=== PATIENT | male | born 1950 | race American Indian/Alaskan Native ===

== ENCOUNTER 2016-06-07 09:32 | Emergency (ER) | payer MEDICAID ==
[2016-06-07 10:23] VITALS: BP 124/81
--- NOTE | 2016-06-07 11:13 | Emergency Department Report ---
ED General Adult HPI - General Chief complaint: High BP Stated complaint: PACEMAKER/BP CKD Time Seen by Provider: 06/07/16 11:09 Source: patient Mode of arrival: Ambulatory Limitations: No Limitations - Related Data Allergies Allergy/AdvReac Type Severity Reaction Status Date / Time No Known Allergies Allergy Unverified 06/07/16 10:21 ED Review of Systems ROS: Stated complaint: PACEMAKER/BP CKD Other details as noted in HPI Comment: All other systems reviewed and negative Constitutional: no symptoms reported Eyes: as per HPI ENT: as per HPI Respiratory: no symptoms reported Cardiovascular: chest pain Endocrine: no symptoms reported Gastrointestinal: as per HPI Genitourinary: as per HPI Musculoskeletal: as per HPI Skin: as per HPI Neurological: as per HPI Psychiatric: as per HPI Hematological/Lymphatic: as per HPI ED Past Medical Hx - Past Medical History Previous Medical History?: Yes - Surgical History Past Surgical History?: Yes ED Physical Exam - General Limitations: No Limitations General appearance: alert, in no apparent distress - Head Head exam: Present: atraumatic - Eye Eye exam: Present: normal appearance, PERRL Pupils: Present: normal accommodation - ENT ENT exam: Present: normal exam, normal orophraynx - Neck Neck exam: Present: normal inspection - Respiratory Respiratory exam: Present: normal lung sounds bilaterally - Cardiovascular Cardiovascular Exam: Present: regular rate - GI/Abdominal GI/Abdominal exam: Present: soft ED Course Vital Signs 06/07/16 10:21 Temperature 98.3 F Pulse Rate 60 Respiratory 16 Rate Blood Pressure 124/81 O2 Sat by Pulse 96 Oximetry ED Medical Decision Making - Medical Decision Making PT COMES FOR INTEROGATION OF HIS PPM. HE CAN NOT FIND HIS MD. HE HAS NO S/S. NO CP. HE JUST WANTS CHECKED. HE HAD BEEN INCARCERATED. DISCUSSED W ER ATTENDING. CALLED DR GONZALEZ WHO WILL SEE PT AND TUE OF NEXT WEEK. PT APPRECIATIVE. VSS NAD Critical care attestation.: If time is entered above; I have spent that time in minutes in the direct care of this critically ill patient, excluding procedure time. ED Disposition Clinical Impression: Well adult Disposition: DISCHARGED TO HOME OR SELFCARE Is pt being admited?: No Does the pt Need Aspirin: No Condition: Good Additional Instructions: FOLLOW UP WITH DR GONZALEZ AT [address] [place] [address] [address] TUESDAY THE May AT 0900 DR GONZALEZ WILL ALSO SEE YOU WED May AT 230 P AT THE SAME OFFICE. Referrals: CAIO BEVERLY MD [Primary Care Provider] - 3-5 Days Time of Disposition: 11:13
--- NOTE | 2016-06-07 16:38 | Emergency Department Report ---
Entered by CHRISTOPHE WOODS, acting as scribe for PENNY BARONE NP. Chief Complaint: High BP Stated Complaint: PACEMAKER/BP CKD Time Seen by Provider: 06/07/16 10:50 - HPI History of Present Illness: Patient presents to the ED to have his heart pacemaker checked. Reports occasional chest pain. Denies SOB and dizziness. Consumes EtOH occasionally. NKDA. - ROS Review of Systems: All systems are negative unless stated in HPI above. - Exam Vital Signs: Vital Signs 06/07/16 10:21 Temperature 98.3 F Pulse Rate 60 Respiratory 16 Rate Blood Pressure 124/81 O2 Sat by Pulse 96 Oximetry Physical Exam: General: alert, well nourished, 65 year old male in no acute distress and nontoxic in appearance. MSE screening note: Focused history and physical exam performed. Due to findings the following was ordered: ED Medical Decision Making - Medical Decision Making Patient seen by provider in triage area. Protocol taken. Patient has been sent to Dr. Banda's office. 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 ED Disposition for MSE Condition: Stable This documentation as recorded by the scribe,CHRISTOPHE WOODS,accurately reflects the service I personally performed and the decisions made by me,PENNY LOPEZ NP.
== END 2016-06-07 11:39 | disposition home or self-care (01) ==
LOC: ED 09:32
DX: Z45.010 Encounter for checking and testing of cardiac pacemaker pulse generator [battery] (principal)
CPT/HCPCS: 99282